=== PATIENT | male | born 1975 | race Caucasian/White ===

== ENCOUNTER 2017-02-22 10:46 | Inpatient (IN) ==
--- NOTE | 2017-02-22 11:43 | Emergency Department Note ---
START Narrative - START START: I examined this patient and my medical decision-making was reviewed with the SPECIALTY SALES REPRESENTATIVE/PA/Advanced Practice Nurse/Resident Physician. I agree with the documented findings, disposition and treatment plan as described except to the extent set forth below. ED attending note: Patient seen with emergency medicine resident Dr YUAN. We independently evaluated the patient. We independently had [id number] contact with the patient. Please see a copy of his note for details of the history and physical, evaluation, management and disposition of this emergency Department patient. Briefly: 4 41-year-old male presents with his family to the emergency department for suicidal ideations. History of heroin abuse in the past has relapsed. Has been seen by mental health at [facility] and admitted overnight in past. Has no discreet plan or access to lethal weapons at this time. He is awake alert appropriate. Neurologically nonfocal no sources of any focal infection. Patient is undergoing screening labs for medical clearance and then will be evaluated by one A. Disposition pending.
[2017-02-22 12:02] LABS: Basophils # 0.1 K/mcL (0.0-0.2); Basophils % 0.4 %; Hemoglobin 15.9 g/dL (12.9-16.9); Immature Granulocytes % 0.2 % (0-4); Lymphocytes # 3.4 K/mcL (0.6-4.6); Lymphocytes % 27.2 %; Mean Corpuscular HGB Conc 35.3 g/dL (31.6-35.5); Mean Corpuscular Hemoglobin 29.8 pg (28.0-33.3); Mean Corpuscular Volume 84.4 fL (83.0-100.0); Mean Platelet Volume 11.1 fL (9.4-12.4); Monocytes # 1.1 K/mcL (0.0-1.3); Monocytes % 8.6 %; Neutrophils # 8.1 K/mcL (1.6-8.9); Platelet Count 207 K/mcL (140-400); Red Blood Count 5.33 M/mcL (4.19-5.50); Red Cell Distribution Width 13.2 % (11.5-14.5); Segmented Neutrophils % 63.6 %
[2017-02-22 12:10] LABS: Bilirubin,Urine Small (Negative); Blood,Urine Negative (Negative); Clarity,Urine Clear (Clear); Color,Urine Dark Yellow (Yellow); Glucose,Urine (UA) Normal (Normal); Ketones,Urine Trace mg/dL (Negative); Leukocyte Esterase,Urine Negative (Negative); Nitrite,Urine Negative (Negative); Protein,Urine 30 mg/dL (Neg-Trace); Specific Gravity,Urine > 1.030 (1.010-1.025); Urobilinogen,Urine Normal (Normal)
[2017-02-22 12:13] LABS: Amphetamine Screen,Urine Negative ng/mL (Cutoff=1000); Bacteria,Urine None Seen per hpf (None-Few); Barbiturate Screen,Urine Negative ng/mL (Cutoff=200); Benzodiazepines Screen,Urine Negative ng/mL (Cutoff=200); Cannabinoid Screen,Urine Negative ng/mL (Cutoff = 50); Cocaine Screen,Urine Positive ng/mL (Cutoff= 300); Hyaline Casts,Urine None Seen per lpf (None-Few); Opiate Screen,Urine Negative ng/mL (Cutoff=300); Phencyclidine Screen,Urine Negative ng/mL (Cutoff=25); Squamous Epithelial Cell,Urine Many per lpf (None-Few)
[2017-02-22 12:15] LABS: BUN/Creatinine Ratio 19 (6-26); Blood Urea Nitrogen 22 mg/dL (8-26); Calcium 10.2 mg/dL (8.6-10.8); Carbon Dioxide 26 mEq/L (19-29); Chloride 103 mEq/L (98-109); Glucose 101 mg/dL (70-99); Osmolality,Calculated 291 (280-300); Potassium 3.6 mEq/L (3.5-4.5); Sodium 139 mEq/L (136-145); eGFR For African Americans > 60 (> 60); eGFR For Non-African Americans > 60 (> 60)
[2017-02-22 12:16] LABS: Acetaminophen < 1.0 mcg/mL (10-30); Ethanol < 10 mg/dL (0-10); Salicylate < 5.0 mg/dL (15-30)
--- NOTE | 2017-02-22 12:38 | Emergency Department Note ---
Disposition Clinical Impression: Suicidal ideation Depression Qualifiers: Depression Type: unspecified Qualified Code(s): F32.9 - Major depressive disorder, single episode, unspecified Disposition: Admitted As Inpatient Condition: Fair Time of Disposition: 18:12 Psych HPI - General Chief Complaint: ED Psychiatric Symptoms Stated Complaint: SI Time Seen by Provider: 02/22/17 11:23 Source: patient Mode of arrival: ambulatory Limitations: no limitations Nursing Notes Reviewed: Yes Vital Signs Reviewed: Yes - History of Present Illness HPI Narrative: Patient is a 41-year-old male who presents to [facility] ED with a chief complaint of suicidal ideation. States he has had a prior history of this and had been started on an antidepressant medication Paxil. States he has a history of heroin abuse and had gone through drug rehabilitation. He had been drug free for 9 months and then had relapsed. He went on a cocaine binge over the weekend. States he now feels like he wants to kill himself and has thought of multiple ways including overdosing on medications. His took away his trazodone to try and keep him safe. Patient states there is a lot of stress in his life including multiple court dates and he does not want to deal with at all. Denies any chest pain, difficulty breathing, abdominal pain. Denies nausea, vomiting, fever or chills. Only complaint is left knee pain which has been bothering him for a long time. Pt complaint: suicidal ideation Onset (ago): day(s) Duration: getting worse History of similar episodes: Yes Improves with: none Worsens with: none Context: recent drug abuse Alleged intoxication: No Associated Psychiatric Symptoms: depression, suicidal ideation Associated symptoms: Reports: denies other symptoms Traumatic symptoms: denies traumatic injury Treatments prior to arrival: none Self harm or harm to others: admits thoughts of self harm, has plan - Related Data Home Medications Medication Instructions Recorded Confirmed Buprenorphine HCl/Naloxone HCl 1 each SL BID 02/22/17 02/22/17 [Suboxone 8 mg-2 mg Sl Film] Ibuprofen [Ibuprofen] 800 mg PO TID PRN 02/22/17 02/22/17 Nicotine Patch [Nicoderm] 7 mg TD DAILY 02/22/17 02/22/17 Paroxetine HCl [Paroxetine Cr] 25 mg PO DAILY 02/22/17 02/22/17 Previous Rx's Medication Instructions Recorded Gabapentin [Neurontin] 600 mg PO TID #90 tablet 06/16/16 Trazodone HCl 100 mg PO HS #30 tablet 06/16/16 Allergies Allergy/AdvReac Type Severity Reaction Status Date / Time No Known Allergies Allergy Verified 03/23/16 05:20 All systems ED: reviewed and negative except as stated. Past Medical History - Past Medical History Attestation: Yes The following information was validated with the patient. Source: patient Medical history: Reports: COPD, hypertension Surgical history: Reports: other Psychiatric history: Reports: prior suicide attempt, previous psychiatric hospitalization - Social History Smoking Status: Current every day smoker Smokeless Tobacco Status: No Alcohol use: Reports: none Drug use: Reports: cocaine, opiates, IV Drug Use, other Physical Exam - General Limitations: no limitations General appearance: alert - Head Head exam: atraumatic, normocephalic, normal inspection - Eye Eye exam: Present: normal appearance, PERRL, EOMI - ENT ENT exam: normal exam, normal oropharynx, mucous membranes moist - Neck Neck exam: Present: normal inspection, full ROM, trachea midline - Chest Chest inspection: Present: normal inspection, symmetric chest wall rise - Respiratory Respiratory exam: Present: normal lung sounds bilaterally - Cardiovascular Cardiovascular exam: Present: regular rate, normal rhythm, normal heart sounds - Abdominal Exam Abdominal exam: Present: soft, Non-Tender - Extremities Exam Extremities exam: Present: tenderness (L knee) - Back Exam Back exam: Present: normal inspection, full ROM. Absent: tenderness - Neurological Exam Neurological exam: Present: alert - Psychiatric Psychiatric exam: Present: normal affect, normal mood - Skin Skin exam: Present: warm, dry, intact, normal color Course Course Narrative: Patient seen and examined. Suicidal ideation. Medical clearance labs ordered. Patient does have left knee pain that has been bothering him for a long time. No acute injury to this. No erythema overlying the region or anything that makes me suspect this is a septic joint. - Reevaluation(s) Reevaluation #1: Patient's lab work shows mild leukocytosis and UDS is positive for cocaine as he had stated previously. No other acute abnormalities. At this time, patient is medically cleared for psychiatric evaluation. 1A was called at 12:40 PM Time: 12:44 Reevaluation #2: Patient was evaluated by psychiatry and is accepted for admission. Time: 18:12 Vital Signs Temperature 98.2 F 02/22/17 11:08 Pulse Rate 84 02/22/17 11:08 Respiratory Rate 16 02/22/17 11:08 Blood Pressure 121/83 02/22/17 11:08 O2 Sat by Pulse Oximetry 96 02/22/17 11:08 Temperature 98.2 F 02/22/17 11:08 Pulse Rate 84 02/22/17 11:08 Respiratory Rate 0 02/22/17 18:12 Blood Pressure 0/0 02/22/17 18:12 O2 Sat by Pulse Oximetry 96 02/22/17 11:08 Oxygen Delivery Oxygen Delivery Room Air Psych - Medical Records Medical records reviewed: Yes I reviewed the patient's medical records. - Lab Data Lab results reviewed: Yes I reviewed the patient's lab results. Result diagrams: 02/22/17 11:49 02/22/17 11:49 Lab Results 02/22/17 02/22/17 02/22/17 Range/Units 11:49 11:49 11:56 WBC 12.7 H (4.3-11.1) K/mcL RBC 5.33 (4.19-5.50) M/mcL Hgb 15.9 (12.9-16.9) g/dL Hct 45.0 (37.5-50.1) % MCV 84.4 (83.0-100.0) fL MCH 29.8 (28.0-33.3) pg MCHC 35.3 (31.6-35.5) g/dL RDW 13.2 (11.5-14.5) % Plt Count 207 (140-400) K/mcL MPV 11.1 (9.4-12.4) fL Immature Gran % 0.2 (0-4) % Seg Neutrophils % 63.6 % Lymphocytes % 27.2 % Monocytes % 8.6 % Eosinophils % 0.0 % Basophils % 0.4 % Neutrophils # 8.1 (1.6-8.9) K/mcL Lymphocytes # 3.4 (0.6-4.6) K/mcL Monocytes # 1.1 (0.0-1.3) K/mcL Eosinophils # 0.0 (0.0-0.6) K/mcL Basophils # 0.1 (0.0-0.2) K/mcL Sodium 139 (136-145) mEq/L Potassium 3.6 (3.5-4.5) mEq/L Chloride 103 (98-109) mEq/L Carbon Dioxide 26 (19-29) mEq/L BUN 22 (8-26) mg/dL Creatinine 1.16 (0.72-1.25) mg/dL Est GFR ( Amer) > 60 (> 60) Est GFR (Non-Af Amer) > 60 (> 60) BUN/Creatinine Ratio 19 (6-26) Glucose 101 H (70-99) mg/dL Calculated Osmolality 291 (280-300) Calcium 10.2 (8.6-10.8) mg/dL Urine Color Dark Yellow (Yellow) Urine Clarity Clear (Clear) Urine pH 6.0 (5.0-8.0) pH Units Ur Specific Robins > 1.030 H (1.010-1.025) Urine Protein 30 H (Neg-Trace) mg/dL Urine Glucose (UA) Normal (Normal) mg/dL Urine Ketones Trace H (Negative) mg/dL Urine Blood Negative (Negative) Urine Nitrite Negative (Negative) Urine Bilirubin Small H (Negative) Urine Urobilinogen Normal (Normal) mg/dL Ur Leukocyte Esterase Negative (Negative) Urine Microscopic RBC 5-15 H (0-3) per hpf Urine Microscopic WBC 3-5 H (0-3) per hpf Ur Squamous Epith Cells Many H (None-Few) per lpf Urine Bacteria None Seen (None-Few) per hpf Hyaline Casts None Seen (None-Few) per lpf Salicylates < 5.0 L (15-30) mg/dL Urine Opiates Screen (Qefasq=323) ng/mL Acetaminophen < 1.0 L (10-30) mcg/mL Ur Barbiturates Screen (Tjtsuv=407) ng/mL Ur Phencyclidine Scrn (Cutoff=25) ng/mL Ur Amphetamines Screen (Iosyjo=8695) ng/mL U Benzodiazepines Scrn (Tlcrny=249) ng/mL Urine Cocaine Screen (Cutoff= 300) ng/mL U Marijuana (THC) Screen (Cutoff = 50) ng/mL Ethyl Alcohol < 10 (0-10) mg/dL 02/22/17 Range/Units 11:56 WBC (4.3-11.1) K/mcL RBC (4.19-5.50) M/mcL Hgb (12.9-16.9) g/dL Hct (37.5-50.1) % MCV (83.0-100.0) fL MCH (28.0-33.3) pg MCHC (31.6-35.5) g/dL RDW (11.5-14.5) % Plt Count (140-400) K/mcL MPV (9.4-12.4) fL Immature Gran % (0-4) % Seg Neutrophils % % Lymphocytes % % Monocytes % % Eosinophils % % Basophils % % Neutrophils # (1.6-8.9) K/mcL Lymphocytes # (0.6-4.6) K/mcL Monocytes # (0.0-1.3) K/mcL Eosinophils # (0.0-0.6) K/mcL Basophils # (0.0-0.2) K/mcL Sodium (136-145) mEq/L Potassium (3.5-4.5) mEq/L Chloride (98-109) mEq/L Carbon Dioxide (19-29) mEq/L BUN (8-26) mg/dL Creatinine (0.72-1.25) mg/dL Est GFR ( Amer) (> 60) Est GFR (Non-Af Amer) (> 60) BUN/Creatinine Ratio (6-26) Glucose (70-99) mg/dL Calculated Osmolality (280-300) Calcium (8.6-10.8) mg/dL Urine Color (Yellow) Urine Clarity (Clear) Urine pH (5.0-8.0) pH Units Ur Specific Robins (1.010-1.025) Urine Protein (Neg-Trace) mg/dL Urine Glucose (UA) (Normal) mg/dL Urine Ketones (Negative) mg/dL Urine Blood (Negative) Urine Nitrite (Negative) Urine Bilirubin (Negative) Urine Urobilinogen (Normal) mg/dL Ur Leukocyte Esterase (Negative) Urine Microscopic RBC (0-3) per hpf Urine Microscopic WBC (0-3) per hpf Ur Squamous Epith Cells (None-Few) per lpf Urine Bacteria (None-Few) per hpf Hyaline Casts (None-Few) per lpf Salicylates (15-30) mg/dL Urine Opiates Screen Negative (Jwpdra=091) ng/mL Acetaminophen (10-30) mcg/mL Ur Barbiturates Screen Negative (Usfggr=716) ng/mL Ur Phencyclidine Scrn Negative (Cutoff=25) ng/mL Ur Amphetamines Screen Negative (Goecvr=2184) ng/mL U Benzodiazepines Scrn Negative (Oudmqi=679) ng/mL Urine Cocaine Screen Positive H (Cutoff= 300) ng/mL U Marijuana (THC) Screen Negative (Cutoff = 50) ng/mL Ethyl Alcohol (0-10) mg/dL - Radiology Data Radiology results reviewed: Yes I reviewed the patient's radiology results. Psychiatric Medical Clearance - Medical Clearance Checklist Does the patient have a NEW psychiatric condition?: No Any abnormalities indicating possible medical illness?: No Any history of medical issues?: No Medical History: No Social History Section defined Any abnormal vital signs prior to transfer?: No Current Vitals: Last Vital Signs Temp 98.2 F 02/22/17 11:08 Pulse 84 02/22/17 11:08 Resp 0 02/22/17 18:12 BP 0/0 02/22/17 18:12 Pulse Ox 96 02/22/17 11:08 Is the patient intoxicated or cognitively impaired?: No Psychiatric Lab Panel: Drug Levels and Toxicity 02/22/17 02/22/17 11:49 11:56 Urine Opiates Screen Negative Acetaminophen < 1.0 L Ur Barbiturates Screen Negative Ur Phencyclidine Scrn Negative Ur Amphetamines Screen Negative U Benzodiazepines Scrn Negative Urine Cocaine Screen Positive H U Marijuana (THC) Screen Negative Ethyl Alcohol < 10 Any abnormalities on the physical exam?: No Any abnormal labs?: Yes (mild leukocytosis, + cocaine) Abnormal Labs: Abnormal lab results WBC 12.7 K/mcL (4.3-11.1) H 02/22/17 11:49 Glucose 101 mg/dL (70-99) H 02/22/17 11:49 Ur Specific Robins > 1.030 (1.010-1.025) H 02/22/17 11:56 Urine Protein 30 mg/dL (Neg-Trace) H 02/22/17 11:56 Urine Ketones Trace mg/dL (Negative) H 02/22/17 11:56 Urine Bilirubin Small (Negative) H 02/22/17 11:56 Urine Microscopic RBC 5-15 per hpf (0-3) H 02/22/17 11:56 Urine Microscopic WBC 3-5 per hpf (0-3) H 02/22/17 11:56 Ur Squamous Epith Cells Many per lpf (None-Few) H 02/22/17 11:56 Salicylates < 5.0 mg/dL (15-30) L 02/22/17 11:49 Acetaminophen < 1.0 mcg/mL (10-30) L 02/22/17 11:49 Urine Cocaine Screen Positive ng/mL (Cutoff= 300) H 02/22/17 11:56 Does the patient require durable medical equiptment?: No Is the patient ambulatory?: Yes Is the patient a fall risk?: No Has the patient been medically cleared?: Yes Any acute medical condition require Tx prior to transfer?: No Statement of Medical Clearance: I have evaluated the patient, reviewed diagnostic information, and certify that the patient's medical condition is sufficiently stable that transfer to the psychiatric unit does not pose a significant risk of deterioration.
[2017-02-22] MEDS ORDERED: *HR* LORazepam 1 MG TABLET PO PRN (19:06)
[2017-02-22] MEDS ORDERED: Ibuprofen 400 MG TABLET PO PRN (19:06)
[2017-02-22] MEDS ORDERED: *HR* LORazepam 2 MG/ML VIAL IM PRN (19:06)
[2017-02-22] MEDS ORDERED: Haloperidol Lactate 5 MG/ML VIAL IM PRN (19:06)
[2017-02-22] MEDS ORDERED: Mag Hydrox/Al Hydrox/Simeth 30 ML UDC PO PRN (19:06)
[2017-02-22] MEDS ORDERED: hydrOXYzine pamoate 25 MG CAPSULE PO PRN (19:06)
[2017-02-22] MEDS ORDERED: traZODone 50 MG TABLET PO PRN (21:00)
[2017-02-22] MEDS ORDERED: MOM Conc 10 ML UD.LIQ PO PRN (21:00)
[2017-02-22] MEDS ORDERED: traZODone 50 MG TABLET PO SCH (21:45)
[2017-02-22] MEDS: Gabapentin 300 MG CAPSULE PO SCH (22:59)
[2017-02-22] MEDS: Ibuprofen 400 MG TABLET PO PRN (23:00)
[2017-02-23] MEDS: Gabapentin 300 MG CAPSULE PO SCH ×3 (08:42→21:59)
[2017-02-23] MEDS: Nicotine 7 MG PATCH.TD24 TD SCH (08:44)
[2017-02-23] MEDS ORDERED: PAXIL 25 MG PO SCH ×2 (09:00→21:00)
--- NOTE | 2017-02-23 12:52 | Psychiatry History & Physical ---
Date of Encounter: 02/23/17 Time of Encounter: 12:25 History of Present Illness Patient Stated Chief Complaint: "I just don't want to live." Medicare Admission Attestation: For traditional Medicare patients the provided hospital inpatient services are reasonable and necessary and in the case of services not specified as inpatient -only under 42 CFR 419.22 (n), that they are appropriately provided as inpatient services in accordance 42 CFR 412.3. For Critical Access Hospital the patient may reasonably be expected to be discharged or transferred to a hospital within 96 hours after admission to the Critical Access Hospital. Admitted From: Emergency Dept History of Present Illness: Mr. Joel is a 41 year old male with a long-standing history of depression , anxiety, polysubstance abuse who presented to the hospital with increasing depression and a plan to overdose on his medications. Patient was admitted to a for psychiatric stabilization. Patient reports that he struggles with mental health issues because he sometimes does not like taking his medications. He does think that the Paxil has been helpful in the past but states over the past few months he has noted his mood is getting worse. He also reports that he recently used cocaine and other drugs in a relapse after being sober for 9 months. "I get depressed and then I would use and that I get more depressed." He reports he has had lots of thoughts about hurting himself and had multiple plans including a plan to overdose on his pills. "That was is the easiest thing I can think of." He reports mood swings, irritability, anger problems. He also reports decreased sleep at times. He takes the trazodone some days but it makes him very sleepy and groggy during work. Patient works at a [employer]. Today he denies any auditory or visual hallucinations. He has not had a history of psychosis in the past. He denies grandiosity, decreased need for sleep or impulsivity. He does admit to anger outbursts and severe depression. Past Med Surg Social Fam HX - Past Medical History Medical history: COPD, hypertension - Past Psychiatric History Psychiatric history: Reports: anxiety, depression, prior suicide attempt, previous psychiatric hospitalization, other (subtance abuse) Past psychiatric history details: Patient has 2 previous psychiatric admissions. He has been to rehabilitation multiple times. Family psychiatric history: Yes Family Psychiatric History Details: Mom and dad have history of depression. Family History of Suicide: None - Past Surgical History Surgical History: other - Social History Smoking Status: Current every day smoker Smokeless Tobacco Status: No Alcohol use: none Drug use: cocaine, opiates, IV Drug Use, other Occupational status: employed Current living situation: Home - Family History Mother Hx Family Neuromuscular Disorders: Yes (back pain) Maternal Grandfather Hx Family Cancer: Yes Paternal Grandfather Hx Family Cancer: Yes Medications & Allergies Gabapentin [Neurontin] 600 mg PO TID #90 tablet 06/16/16 [Rx] Trazodone HCl 100 mg PO HS #30 tablet 06/16/16 [Rx] Buprenorphine HCl/Naloxone HCl [Suboxone 8 mg-2 mg Sl Film] 1 each SL BID [History] Ibuprofen [Ibuprofen] 800 mg PO TID PRN 02/22/17 [History] Nicotine Patch [Nicoderm] 7 mg TD DAILY 02/22/17 [History] Paroxetine HCl [Paroxetine Cr] 25 mg PO DAILY 02/22/17 [History] Allergies No Known Allergies Allergy (Verified 03/23/16 05:20) Review of Systems Constitutional: Denies: fever, chills, weakness, weight change Eyes: Denies: eye pain, vision change Ears, Nose, Throat: Denies: ear pain, throat pain, dental pain, hearing loss, congestion Cardiovascular: Denies: chest pain, palpitations, dyspnea on exertion Respiratory: Denies: cough, dyspnea, wheezes Gastrointestinal: Denies: abdominal pain, nausea, vomiting, diarrhea, constipation Genitourinary male: Denies: urgency, dysuria, frequency, genital lesions Genitourinary female: Denies: urgency, dysuria, frequency, abnormal menses, dyspareunia Musculoskeletal: Reports: back pain, joint pain Integumentary: Denies: rash, lesions, pruritus Neurological: Reports: headache, paresthesias Psychiatric: Reports: depression, anxiety, abnormal sleep pattern, suicidal ideation, difficulty concentrating, hopelessness, irritability, mood swings. Denies: auditory hallucinations, visual hallucinations Endocrine: Denies: fatigue, heat or cold intolerance Hematologic/Lymphatic: Denies: easy bruising, lymphadenopathy Allergic/Immunologic: Denies: urticaria, itchy eyes Mental Status Exam Patient orientation: Yes Person, Yes Time, Yes Place Level of alertness: Alert Patient appearance: Appropriate Behavior: calm, cooperative Psychomotor activity: Normal Eye contact: Minimal Contact Mood description: Depressed Affect description: congruent with mood Speech pattern: Normal rate, Normal rhythm, Normal tone Speech volume: Normal Thought process: Intact, Logical Thought content: Yes Suicidal ideation Perceptual disturbances: No Auditory hallucinations, No Visual hallucinations Attention span: Capable of Focused Attention Memory description: Grossly Intact, Immediate Intact Patient reliability: Reliable Historian Intelligence estimate: Average Judgment: Limited Insight: Minimal Exam - HEENT Head exam IM: Present: atraumatic Eye exam IM: Present: conjuntiva pink - Neurological Neurological exam IM: Present: CN II-XII intact - Extremities Extremities exam IM: Present: full ROM - Skin Skin exam IM: Present: dry, warm Results - Vital Signs Vital signs: Temp Pulse Resp BP Pulse Ox 97.3 F L 73 16 105/80 96 02/23/17 09:00 02/23/17 09:00 02/23/17 09:00 02/23/17 09:00 02/22/17 11:08 - Labs Labs: Laboratory Last Values WBC 12.7 K/mcL (4.3-11.1) H 02/22/17 11:49 RBC 5.33 M/mcL (4.19-5.50) 02/22/17 11:49 Hgb 15.9 g/dL (12.9-16.9) 02/22/17 11:49 Hct 45.0 % (37.5-50.1) 02/22/17 11:49 MCV 84.4 fL (83.0-100.0) 02/22/17 11:49 MCH 29.8 pg (28.0-33.3) 02/22/17 11:49 MCHC 35.3 g/dL (31.6-35.5) 02/22/17 11:49 RDW 13.2 % (11.5-14.5) 02/22/17 11:49 Plt Count 207 K/mcL (140-400) 02/22/17 11:49 MPV 11.1 fL (9.4-12.4) 02/22/17 11:49 Immature Gran % 0.2 % (0-4) 02/22/17 11:49 Seg Neutrophils % 63.6 % 02/22/17 11:49 Lymphocytes % 27.2 % 02/22/17 11:49 Monocytes % 8.6 % 02/22/17 11:49 Eosinophils % 0.0 % 02/22/17 11:49 Basophils % 0.4 % 02/22/17 11:49 Neutrophils # 8.1 K/mcL (1.6-8.9) 02/22/17 11:49 Lymphocytes # 3.4 K/mcL (0.6-4.6) 02/22/17 11:49 Monocytes # 1.1 K/mcL (0.0-1.3) 02/22/17 11:49 Eosinophils # 0.0 K/mcL (0.0-0.6) 02/22/17 11:49 Basophils # 0.1 K/mcL (0.0-0.2) 02/22/17 11:49 Sodium 139 mEq/L (136-145) 02/22/17 11:49 Potassium 3.6 mEq/L (3.5-4.5) 02/22/17 11:49 Chloride 103 mEq/L (98-109) 02/22/17 11:49 Carbon Dioxide 26 mEq/L (19-29) 02/22/17 11:49 BUN 22 mg/dL (8-26) 02/22/17 11:49 Creatinine 1.16 mg/dL (0.72-1.25) 02/22/17 11:49 Est GFR ( Amer) > 60 (> 60) 02/22/17 11:49 Est GFR (Non-Af Amer) > 60 (> 60) 02/22/17 11:49 BUN/Creatinine Ratio 19 (6-26) 02/22/17 11:49 Glucose 101 mg/dL (70-99) H 02/22/17 11:49 Calculated Osmolality 291 (280-300) 02/22/17 11:49 Calcium 10.2 mg/dL (8.6-10.8) 02/22/17 11:49 Urine Color Dark Yellow (Yellow) 02/22/17 11:56 Urine Clarity Clear (Clear) 02/22/17 11:56 Urine pH 6.0 pH Units (5.0-8.0) 02/22/17 11:56 Ur Specific Conrad > 1.030 (1.010-1.025) H 02/22/17 11:56 Urine Protein 30 mg/dL (Neg-Trace) H 02/22/17 11:56 Urine Glucose (UA) Normal mg/dL (Normal) 02/22/17 11:56 Urine Ketones Trace mg/dL (Negative) H 02/22/17 11:56 Urine Blood Negative (Negative) 02/22/17 11:56 Urine Nitrite Negative (Negative) 02/22/17 11:56 Urine Bilirubin Small (Negative) H 02/22/17 11:56 Urine Urobilinogen Normal mg/dL (Normal) 02/22/17 11:56 Ur Leukocyte Esterase Negative (Negative) 02/22/17 11:56 Urine Microscopic RBC 5-15 per hpf (0-3) H 02/22/17 11:56 Urine Microscopic WBC 3-5 per hpf (0-3) H 02/22/17 11:56 Ur Squamous Epith Cells Many per lpf (None-Few) H 02/22/17 11:56 Urine Bacteria None Seen per hpf (None-Few) 02/22/17 11:56 Hyaline Casts None Seen per lpf (None-Few) 02/22/17 11:56 Salicylates < 5.0 mg/dL (15-30) L 02/22/17 11:49 Urine Opiates Screen Negative ng/mL (Aanhmt=226) 02/22/17 11:56 Acetaminophen < 1.0 mcg/mL (10-30) L 02/22/17 11:49 Ur Barbiturates Screen Negative ng/mL (Ftwdfe=381) 02/22/17 11:56 Ur Phencyclidine Scrn Negative ng/mL (Cutoff=25) 02/22/17 11:56 Ur Amphetamines Screen Negative ng/mL (Pqiocj=8622) 02/22/17 11:56 U Benzodiazepines Scrn Negative ng/mL (Vtpefi=348) 02/22/17 11:56 Urine Cocaine Screen Positive ng/mL (Cutoff= 300) H 02/22/17 11:56 U Marijuana (THC) Screen Negative ng/mL (Cutoff = 50) 02/22/17 11:56 Ethyl Alcohol < 10 mg/dL (0-10) 02/22/17 11:49 Assessment and Plan (1) Major depressive disorder, recurrent Current visit: No Status: Acute Plan: Admit inpatient for safety and stabilization, Close observation, Suicide Precautions per unit protocol, Encourage participation in unit milieu, Group Therapy, Monitor sleep, Monitor appetite Additional Plan: TAper Paxil. Transition to wellbutrin for depression. Encourage group attendance. Monitor sleep and appetite. Start Remeron for sleep and discontinue trazodone. Risks, benefits, side effects, alternatives discussed w/pt: Yes Patient agreeable to treatment: Yes Qualifiers: Active/Remission status: currently active Major depression episode severity : severe Psychotic features: without psychotic features Qualified Code(s): F33.2 - Major depressive disorder, recurrent severe without psychotic features (2) Anxiety Current visit: No Status: Acute Plan: Admit inpatient for safety and stabilization, Close observation, Suicide Precautions per unit protocol, Encourage participation in unit milieu, Group Therapy, Monitor sleep, Monitor appetite Additional Plan: Encouraged patient to use non-habit forming meds for anxiety. Encouraged continued positive coping strategies. Risks, benefits, side effects, alternatives discussed w/pt: Yes Patient agreeable to treatment: Yes (3) Polysubstance abuse Current visit: No Status: Acute Plan: Admit inpatient for safety and stabilization, Close observation Additional Plan: Avoid habit-forming substances. Patient is considering long-term outpatient substance abuse treatment when he leaves here. Patient reports she has been off Suboxone for several days and is concerned about withdrawal. We will monitor vitals and other symptoms of opiate withdrawal. Symptomatic treatment for withdrawal symptoms. Risks, benefits, side effects, alternatives discussed w/pt: Yes Patient agreeable to treatment: Yes
[2017-02-23] MEDS: Mirtazapine 15 MG TABLET PO SCH (21:59)
[2017-02-24] MEDS: Nicotine 7 MG PATCH.TD24 TD SCH (08:43)
[2017-02-24] MEDS: Gabapentin 300 MG CAPSULE PO SCH ×3 (08:44→20:43)
[2017-02-24] MEDS: BuPROPion XL (24 HR) 150 MG TABLET PO SCH (08:44)
--- NOTE | 2017-02-24 10:20 | Psychiatry Progress Note ---
Date of Encounter: 02/24/17 Time of Encounter: 08:35 Subjective Interval history: Johnny is seen today for follow-up. Discussed case in treatment team as well. Patient reports continued depression but some mild improvement in suicidal thoughts. He does admit to "feeling hot and cold." He is unsure if this was related to Suboxone withdrawal or the fact that he did not get a Paxil dose yesterday. He did sleep better but is unsure if the medication is helping for sleep or not. I just do not feel like myself." Patient still has suicidal ideation but he states now it is because "I do not like feeling like this." Review of Systems Constitutional: Denies: fever, chills, weakness, weight change Eyes: Denies: eye pain, vision change Ears, Nose, Throat: Denies: ear pain, throat pain, dental pain, hearing loss, congestion Cardiovascular: Denies: chest pain, palpitations, dyspnea on exertion Respiratory: Denies: cough, dyspnea, wheezes Gastrointestinal: Denies: abdominal pain, nausea, vomiting, diarrhea, constipation Musculoskeletal: Denies: joint swelling, joint pain Neurological: Denies: headache, weakness, numbness, memory loss Psychiatric: Reports: depression, anxiety, abnormal sleep pattern, suicidal ideation, difficulty concentrating, irritability, mood swings. Denies: auditory hallucinations, visual hallucinations Objective: Exam Patient orientation: Yes Person, Yes Time, Yes Place Level of alertness: Alert Patient appearance: Appropriate Behavior: cooperative Psychomotor activity: Normal Eye contact: Fleeting Contact Mood description: Depressed Affect description: congruent with mood Speech pattern: Normal rate, Normal rhythm, Normal tone Speech volume: Normal Thought process: Intact Thought content: Yes Suicidal ideation, No Homicidal ideation Perceptual disturbances: No Auditory hallucinations, No Visual hallucinations Judgment: Limited Insight: Minimal Results - Vital Signs Vital Signs: Temp Pulse Resp BP Pulse Ox 97.6 F 67 16 136/92 96 02/24/17 08:46 02/24/17 08:46 02/24/17 08:46 02/24/17 08:46 02/22/17 11:08 Assessment and Plan (1) Major depressive disorder, recurrent Current visit: No Status: Acute Additional Plan: Continue Paxil taper. Continue Wellbutrin. At this point it is unclear if patient is having bad side effects or withdrawal from various drug use. We will monitor closely. Risks, benefits, side effects, alternatives discussed w/pt: Yes Patient agreeable to treatment: Yes Qualifiers: Active/Remission status: currently active Major depression episode severity : severe Psychotic features: without psychotic features Qualified Code(s): F33.2 - Major depressive disorder, recurrent severe without psychotic features (2) Anxiety Current visit: No Status: Acute Plan: Continue hospitalization, Close observation, Suicide Precautions per unit protocol, Encourage participation in unit milieu, Group Therapy, Monitor sleep, Monitor appetite Additional Plan: Encouraged continued positive coping strategies. Risks, benefits, side effects, alternatives discussed w/pt: Yes Patient agreeable to treatment: Yes (3) Polysubstance abuse Current visit: No Status: Acute Plan: Continue hospitalization, Close observation, Suicide Precautions per unit protocol, Encourage participation in unit milieu, Group Therapy, Monitor sleep, Monitor appetite Additional Plan: Patient will continue to call rehabs. Risks, benefits, side effects, alternatives discussed w/pt: Yes Patient agreeable to treatment: Yes Consult Discharge Plan - Plan Referrals: [facility] [Other] - 03/01/17 6:00 pm (You will see Msisy for a home visit for outpatient substance abuse counseling on 03/01/2017 at 6: 0pm) [facility] [Outside] - 03/01/17 10:00 am (The above appointment is with Mari Dhillon for dual diagnosis counseling. You will also see Zahra Donahue CNP, for outpatient psychiatric assessment and medication management services on 03/23/2017 at 8:00 AM.) Idalia Stephenson [Advanced Practice Nurse] - 03/04/17 10:00 am (The above appointment is with Idalia Stephenson CNP, at [facility]. This appointment is to discuss your needs for Vivitrol. Please arrive 15 minutes early to complete paperwork. Please bring your insurance card, photo ID and list of current medications to your first appointment. )
[2017-02-24] MEDS: Mirtazapine 15 MG TABLET PO SCH (20:44)
[2017-02-24] MEDS: Ibuprofen 400 MG TABLET PO PRN (20:44)
[2017-02-25] MEDS: Nicotine 7 MG PATCH.TD24 TD SCH (08:37)
[2017-02-25] MEDS: Gabapentin 300 MG CAPSULE PO SCH ×3 (08:37→21:38)
[2017-02-25] MEDS: BuPROPion XL (24 HR) 150 MG TABLET PO SCH (08:38)
[2017-02-25] MEDS ORDERED: BuPROPion XL (24 HR) 150 MG TABLET PO SCH (10:23)
--- NOTE | 2017-02-25 13:54 | Psychiatry Progress Note ---
Date of Encounter: 02/25/17 Time of Encounter: 10:20 Subjective Interval history: Patient seen today for follow-up. Discussed in treatment team. Patient reports some mild improvement although he feels that him not getting his Paxil is what caused him to feel fatigued today. We discussed that he is likely having some withdrawal from Suboxone as well. Patient admits to periods of irritability and myalgias that may be related to Suboxone withdrawal. He reports vague intermittent suicidal ideations at times. He is hopeful about the medication changes and feels the Remeron helps with sleep. Review of Systems Constitutional: Denies: fever, chills, weakness, weight change Eyes: Denies: eye pain, vision change Ears, Nose, Throat: Denies: ear pain, throat pain, dental pain, hearing loss, congestion Cardiovascular: Denies: chest pain, palpitations, dyspnea on exertion Respiratory: Denies: cough, dyspnea, wheezes Gastrointestinal: Denies: abdominal pain, nausea, vomiting, diarrhea, constipation Musculoskeletal: Reports: myalgia Neurological: Denies: headache, weakness, numbness, memory loss Psychiatric: Reports: depression, anxiety, abnormal sleep pattern, suicidal ideation, difficulty concentrating, irritability, mood swings. Denies: auditory hallucinations, visual hallucinations Objective: Exam Patient orientation: Yes Person, Yes Time, Yes Place Level of alertness: Alert Patient appearance: Appropriate Behavior: calm Psychomotor activity: Normal Eye contact: Maintains Eye Contact Mood description: Depressed Affect description: incongruent with mood Speech pattern: Normal rate, Normal rhythm, Normal tone Speech volume: Normal Thought process: Logical Thought content: Yes Suicidal ideation, No Homicidal ideation Perceptual disturbances: No Auditory hallucinations, No Visual hallucinations Judgment: Limited Insight: Minimal Results - Vital Signs Vital Signs: Temp Pulse Resp BP Pulse Ox 97.8 F 64 16 120/79 96 02/25/17 08:14 02/25/17 08:14 02/25/17 08:14 02/25/17 08:14 02/22/17 11:08 Assessment and Plan (1) Major depressive disorder, recurrent Current visit: No Status: Acute Plan: Continue hospitalization, Close observation, Suicide Precautions per unit protocol, Encourage participation in unit milieu, Group Therapy, Monitor sleep, Monitor appetite Additional Plan: Increase Wellbutrin. Encourage positive coping strategies. Some improvement in mood. Plan for discharge tomorrow if things continue to improve. Risks, benefits, side effects, alternatives discussed w/pt: Yes Patient agreeable to treatment: Yes Qualifiers: Active/Remission status: currently active Major depression episode severity : severe Psychotic features: without psychotic features Qualified Code(s): F33.2 - Major depressive disorder, recurrent severe without psychotic features (2) Anxiety Current visit: No Status: Acute Risks, benefits, side effects, alternatives discussed w/pt: Yes Patient agreeable to treatment: Yes (3) Polysubstance abuse Current visit: No Status: Acute Additional Plan: Patient feels mental health issues are more of an issue than substance abuse. We are discussing the importance of following up with substance abuse treatment. Risks, benefits, side effects, alternatives discussed w/pt: Yes Patient agreeable to treatment: Yes Consult Discharge Plan - Plan Referrals: [facility] [Other] - 03/01/17 6:00 pm (You will see Missy for a home visit for outpatient substance abuse counseling on 03/01/2017 at 6: 0pm) [facility] [Outside] - 03/01/17 10:00 am (The above appointment is with Mari Dhillon for dual diagnosis counseling. You will also see Zahra Donahue CNP, for outpatient psychiatric assessment and medication management services on 03/23/2017 at 8:00 AM.) Idalia Stephenson [Advanced Practice Nurse] - 03/04/17 10:00 am (The above appointment is with Idalia Stephenson CNP, at [facility]. This appointment is to discuss your needs [facility] [place] [facility]. Please arrive 15 minutes early to complete paperwork. Please bring your insurance card, photo ID and list of current medications to your first appointment. )
[2017-02-25] MEDS: Mirtazapine 15 MG TABLET PO SCH (21:38)
[2017-02-26 08:32] VITALS: BP 136/94
[2017-02-26] MEDS: Nicotine 7 MG PATCH.TD24 TD SCH (08:48)
[2017-02-26] MEDS: Gabapentin 300 MG CAPSULE PO SCH ×2 (08:49→14:18)
--- NOTE | 2017-02-26 14:09 | Discharge Summary ---
Date of Encounter: 02/26/17 Time of Encounter: 09:30 Diagnosis - Discharge Diagnosis (1) Major depressive disorder, recurrent Priority: Primary Status: Acute Qualifiers: Active/Remission status: currently active Major depression episode severity : severe Psychotic features: without psychotic features Qualified Code(s): F33.2 - Major depressive disorder, recurrent severe without psychotic features (2) Anxiety Priority: Secondary Status: Acute (3) Polysubstance abuse Priority: Secondary Status: Acute Medications - Discharge Medications Prescriptions: BuPROPion XL (24 HR) [Wellbutrin Xl] 300 mg PO DAILY #60 tab Mirtazapine [Remeron] 15 mg PO HS #30 tab Paroxetine [Paxil] 10 mg PO HS #30 tab Gabapentin [Neurontin] 600 mg PO TID #90 tablet 06/16/16 [Rx] Buprenorphine HCl/Naloxone HCl [Suboxone 8 mg-2 mg Sl Film] 1 each SL BID [History] Ibuprofen 800 mg PO TID PRN 02/22/17 [History] Nicotine Patch [Nicoderm] 7 mg TD DAILY 02/22/17 [History] BuPROPion XL (24 HR) [Wellbutrin Xl] 300 mg PO DAILY #60 tab 02/26/17 [Rx] Mirtazapine [Remeron] 15 mg PO HS #30 tab 02/26/17 [Rx] Paroxetine [Paxil] 10 mg PO HS #30 tab 02/26/17 [Rx] Allergies No Known Allergies Allergy (Verified 03/23/16 05:20) Provider Date of admission: 02/23/17 13:03 Primary care physician: PCP NONE Discharging clinician: Holly Kelly Assessment and Plan - Patient/Caregiver Discharge Instructions Activity: resume usual activities as tolerated Diet: regular diet - Follow up Plan Follow up with: [facility] [Other] - 03/01/17 6:00 pm (You will see Missy for a home visit for outpatient substance abuse counseling on 03/01/2017 at 6: 0pm) [facility] [Outside] - 03/01/17 10:00 am (The above appointment is with Mari Dhillon for dual diagnosis counseling. You will also see Zahra Donahue CNP, for outpatient psychiatric assessment and medication management services on 03/23/2017 at 8:00 AM.) Idalia Stephenson [Advanced Practice Nurse] - 03/04/17 10:00 am (The above appointment is with Idalia Stephenson CNP, at [facility]. This appointment is to discuss your needs for Johnnie. Please arrive 15 minutes early to complete paperwork. Please bring your insurance card, photo ID and list of current medications to your first appointment. ) Functional capacity at discharge: independent ambulation Overall status at discharge: Stable Disposition: Home, Self-Care Hospital Course Hospital course: Mr. Joel is a 41 year old male with a history of depression, anxiety, polysubstance abuse who presented to the hospital with increasing depression and suicidal ideations. He was admitted to [facility] for psychiatric stabilization. Patient was incorporated into the therapeutic milieu and offer group and individual as well as recreational therapy. He was also offered psychoeducational materials and supportive therapy. He was placed on suicide precautions and close observation per unit protocol. Patient had been on Paxil and trazodone but felt these meds were helping. The Paxil was decreased to 10 mg daily and she was started on Remeron for sleep. He was also given Wellbutrin for mood symptoms. Throughout the course of the hospital stay the patient's mood improved. He was resistant to attending group activities but he interact with peers and staff during meals and other activities. At the time of discharge he denied suicidal or homicidal ideation, intent, or plan. He denied auditory or visual hallucinations. He was willing to continue treatment as an outpatient for his substance abuse issues as well as his mental health issues. Insight into the importance of the substance abuse treatment was still poor at the time of discharge. Educated patient on the necessity of keeping all of his appointments and taking his meds as prescribed. He was discharged in stable condition. - Time Spent with Patient Total time spent providing and/or coordinating discharge services: Greater than 30 minutes Quality - Multiple Antipsychotics Patient discharged on 2 or more antipsychotic medications: No Procedures - Procedures Procedures: Medication Management, Crisis Stabilization, Supportive Therapy, Group Therapy, Psychoeducational Therapy Mental Status Exam - Mental Status Exam Patient orientation: Yes Person, Yes Time, Yes Place Level of alertness: Alert Patient appearance: Appropriate, Well Groomed Behavior: calm, cooperative Psychomotor activity: Normal Eye contact: Maintains Eye Contact Mood description: Euthymic/stable Affect description: congruent with mood, full range Speech pattern: Normal rate, Normal rhythm, Normal tone Speech Volume: Normal Thought process: Linear, Goal Oriented Thought Content: No Suicidal ideation, No Homicidal ideation, No Overt delusions Perceptual Disturbances: No Auditory hallucinations, No Visual hallucinations Judgment: Limited Insight: Partial
== END 2017-02-26 17:50 | disposition home or self-care (01) | DRG 751 ==
LOC: EMEROO 10:46 → 1ANU 17:08 → INTOOBSV 17:08 → 1ANU 18:14
PROVIDERS: ADMIT Student in an Organized Health Care Education/Training Program; ATTEND Student in an Organized Health Care Education/Training Program

== ENCOUNTER 2017-03-08 21:57 | Inpatient (IN) ==
--- NOTE | 2017-03-08 22:25 | Emergency Department Note ---
Disposition Clinical Impression: Suicidal ideation Disposition: Admitted As Inpatient Condition: Good Forms: ED Satisfaction Letter Time of Disposition: 03:29 Psych HPI - General Chief Complaint: ED Psychiatric Symptoms Stated Complaint: SI Time Seen by Provider: 03/08/17 22:13 Source: patient Limitations: no limitations Nursing Notes Reviewed: Yes Vital Signs Reviewed: Yes - History of Present Illness HPI Narrative: 41 year old male with mental health problems presents to the ED with SI. He states that he has been hep c free and has a good family and home but on Wednesday he recieved upsetting news that he may be going to [facility] at least [facility] and now he feels increasingly more suidical and feels like doing heorin and overdosing. He states that on Wednesday he started walking and only came home once and his appetite has decreased in addition to in ability to sleep. He states that this is simliar to what happened in may 2016 , where he excuted his plan and was adddmited for OD in this hospital. His convinced him to come to be evaluated. He states that his left second toe hurts from walkgin so much. - Related Data Home Medications Medication Instructions Recorded Confirmed Buprenorphine HCl/Naloxone HCl 1 each SL BID 02/22/17 02/22/17 [Suboxone 8 mg-2 mg Sl Film] Ibuprofen 800 mg PO TID PRN 02/22/17 02/22/17 Nicotine Patch [Nicoderm] 7 mg TD DAILY 02/22/17 02/22/17 Previous Rx's Medication Instructions Recorded Gabapentin [Neurontin] 600 mg PO TID #90 tablet 06/16/16 BuPROPion XL (24 HR) [Wellbutrin 300 mg PO DAILY #60 tab 02/26/17 Xl] Mirtazapine [Remeron] 15 mg PO HS #30 tab 02/26/17 Paroxetine [Paxil] 10 mg PO HS #30 tab 02/26/17 Allergies Allergy/AdvReac Type Severity Reaction Status Date / Time No Known Allergies Allergy Verified 03/23/16 05:20 Constitutional: Denies: fever, chills, weakness, weight change Eyes: Denies: eye pain, eye discharge, vision change ENT ED: Denies: ear pain, throat pain, dental pain, hearing loss, epistaxis, congestion, dysphagia Cardiovascular: Denies: chest pain, palpitations, dyspnea on exertion, edema, syncope Respiratory: Denies: cough, dyspnea, wheezes, hemoptysis, stridor Gastrointestinal: Denies: abdominal pain, nausea, vomiting, diarrhea, constipation, hematemesis, melena, hematochezia Genitourinary: Denies: urgency, dysuria, frequency, hematuria Musculoskeletal: Reports: other (left second toe pain). Denies: back pain, neck pain, arthralgia, myalgia Integumentary: Denies: rash, abrasion, lesions Neurological: Denies: headache, weakness, numbness, paresthesias, confusion, abnormal gait, vertigo Psychiatric: Reports: anxiety, depression, suicidal thoughts. Denies: homicidal thoughts, auditory hallucinations, visual hallucinations Endocrine: Denies: fatigue Hematological/Lymphatic: Denies: easy bleeding, easy bruising Allergic/Immunologic: Denies: facial swelling, urticaria Past Medical History - Past Medical History Medical history: Reports: COPD, hypertension Surgical history: Reports: other Psychiatric history: Reports: anxiety, depression, prior suicide attempt, previous psychiatric hospitalization, other - Social History Smoking Status: Current every day smoker Smokeless Tobacco Status: No Alcohol use: Reports: none Drug use: Reports: cocaine, opiates, IV Drug Use, other Physical Exam - General Limitations: no limitations General appearance: alert - Head Head exam: atraumatic, normocephalic, normal inspection - Eye Eye exam: Present: normal appearance, PERRL, EOMI - Expanded Eye Exam Pupils: Left: reactive - ENT ENT exam: normal exam, normal oropharynx, mucous membranes moist - Expanded ENT Exam External ear exam: Present: normal external inspection Mouth exam: Present: normal external inspection Teeth exam: Present: normal inspection Throat exam: Present: normal inspection - Neck Neck exam: Present: normal inspection, full ROM, trachea midline - Chest Chest inspection: Present: normal inspection, symmetric chest wall rise - Respiratory Respiratory exam: Present: normal lung sounds bilaterally - Cardiovascular Cardiovascular exam: Present: regular rate, normal rhythm, normal heart sounds - Abdominal Exam Abdominal exam: Present: soft, Non-Tender. Absent: tenderness, distention, guarding, rebound, rigidity - Extremities Exam Extremities exam: Present: normal inspection, full ROM. Absent: tenderness, pedal edema - Expanded Upper Extremity Exam Shoulder exam: Present: normal inspection, full ROM Arm exam: Present: normal inspection, full ROM Elbow exam: Present: normal inspection, full ROM Forearm/Wrist exam: Present: normal inspection, full ROM Hand exam: Present: normal inspection, full ROM Vascular exam: Normal: capillary refill, radial pulse - Expanded Lower Extremity Exam Hip/Pelvis exam: Present: normal inspection, full ROM Upper leg exam: Present: normal inspection, full ROM Knee exam: Present: normal inspection, full ROM Lower leg exam: Present: normal inspection, full ROM Ankle exam: Present: normal inspection, full ROM Foot/toe exam: Present: normal inspection, full ROM 1 - left second toe bruising, good pulses, warm foot 2 - bruised that is warm, good pulses Neurovascular/Tendon exam: Absent: motor deficit, sensory deficit, tendon deficit - Back Exam Back exam: Present: normal inspection, full ROM. Absent: tenderness - Neurological Exam Neurological exam: Present: alert, oriented X3 - Expanded Neurological Exam Patient oriented to: Present: person, place, time Coma Scale Eye Opening: Spontaneous Coma Scale Motor Response: Obeys Commands Coma Scale Verbal Response: Oriented Coma Scale Total: 15 - Psychiatric Psychiatric exam: Present: normal affect, normal mood - Skin Skin exam: Present: warm, dry, intact, normal color Course Course Narrative: we will do a pysch clearance and XR his feet than consult 1a - Reevaluation(s) Reevaluation #1: jon is medically cleared. 1A consult Time: 22:50 - Consultations Consultation #1: 1A accepts patient for admission. Time: 03:28 Vital Signs Temperature 98.1 F 03/08/17 21:59 Pulse Rate 80 03/08/17 21:59 Respiratory Rate 14 03/08/17 21:59 Blood Pressure 126/83 03/08/17 21:59 O2 Sat by Pulse Oximetry 96 03/08/17 21:59 Temperature 98.4 F 03/09/17 02:55 Pulse Rate 71 03/09/17 02:55 Respiratory Rate 16 03/09/17 02:55 Blood Pressure 100/68 03/09/17 02:55 O2 Sat by Pulse Oximetry 97 03/09/17 02:55 Oxygen Delivery Oxygen Delivery Room Air Psych - Lab Data Result diagrams: 03/08/17 22:16 03/08/17 22:16 Lab Results 03/08/17 03/08/17 03/08/17 Range/Units 02:56 02:56 22:16 WBC 10.0 (4.3-11.1) K/mcL RBC 5.06 (4.19-5.50) M/mcL Hgb 14.7 (12.9-16.9) g/dL Hct 42.7 (37.5-50.1) % MCV 84.4 (83.0-100.0) fL MCH 29.1 (28.0-33.3) pg MCHC 34.4 (31.6-35.5) g/dL RDW 13.2 (11.5-14.5) % Plt Count 221 (140-400) K/mcL MPV 11.4 (9.4-12.4) fL Immature Gran % 0.3 (0-4) % Seg Neutrophils % 52.4 % Lymphocytes % 35.7 % Monocytes % 11.0 % Eosinophils % 0.0 % Basophils % 0.6 % Neutrophils # 5.2 (1.6-8.9) K/mcL Lymphocytes # 3.6 (0.6-4.6) K/mcL Monocytes # 1.1 (0.0-1.3) K/mcL Eosinophils # 0.0 (0.0-0.6) K/mcL Basophils # 0.1 (0.0-0.2) K/mcL Sodium (136-145) mEq/L Potassium (3.5-4.5) mEq/L Chloride (98-109) mEq/L Carbon Dioxide (19-29) mEq/L BUN (8-26) mg/dL Creatinine (0.72-1.25) mg/dL Est GFR ( Amer) (> 60) Est GFR (Non-Af Amer) (> 60) BUN/Creatinine Ratio (6-26) Glucose (70-99) mg/dL Calculated Osmolality (280-300) Calcium (8.6-10.8) mg/dL Urine Color Dark Yellow (Yellow) Urine Clarity Clear (Clear) Urine pH 6.0 (5.0-8.0) pH Units Ur Specific [place] > 1.030 H (1.010-1.025) Urine Protein Trace (Neg-Trace) mg/dL Urine Glucose (UA) Normal (Normal) mg/dL Urine Ketones Negative (Negative) mg/dL Urine Blood Negative (Negative) Urine Nitrite Negative (Negative) Urine Bilirubin Small H (Negative) Urine Urobilinogen Normal (Normal) mg/dL Ur Leukocyte Esterase Negative (Negative) Urine Microscopic RBC 0-3 (0-3) per hpf Urine Microscopic WBC 0-3 (0-3) per hpf Ur Squamous Epith Cells Moderate H (None-Few) per lpf Urine Bacteria None Seen (None-Few) per hpf Hyaline Casts None Seen (None-Few) per lpf Salicylates (15-30) mg/dL Urine Opiates Screen Negative (Vorjcv=107) ng/mL Acetaminophen (10-30) mcg/mL Ur Barbiturates Screen Negative (Zprkck=679) ng/mL Ur Phencyclidine Scrn Negative (Cutoff=25) ng/mL Ur Amphetamines Screen Negative (Unybnl=8639) ng/mL U Benzodiazepines Scrn Negative (Lsonnx=480) ng/mL Urine Cocaine Screen Positive H (Cutoff= 300) ng/mL U Marijuana (THC) Screen Negative (Cutoff = 50) ng/mL Ethyl Alcohol (0-10) mg/dL 03/08/17 Range/Units 22:16 WBC (4.3-11.1) K/mcL RBC (4.19-5.50) M/mcL Hgb (12.9-16.9) g/dL Hct (37.5-50.1) % MCV (83.0-100.0) fL MCH (28.0-33.3) pg MCHC (31.6-35.5) g/dL RDW (11.5-14.5) % Plt Count (140-400) K/mcL MPV (9.4-12.4) fL Immature Gran % (0-4) % Seg Neutrophils % % Lymphocytes % % Monocytes % % Eosinophils % % Basophils % % Neutrophils # (1.6-8.9) K/mcL Lymphocytes # (0.6-4.6) K/mcL Monocytes # (0.0-1.3) K/mcL Eosinophils # (0.0-0.6) K/mcL Basophils # (0.0-0.2) K/mcL Sodium 140 (136-145) mEq/L Potassium 3.4 L (3.5-4.5) mEq/L Chloride 106 (98-109) mEq/L Carbon Dioxide 25 (19-29) mEq/L BUN 18 (8-26) mg/dL Creatinine 1.15 (0.72-1.25) mg/dL Est GFR ( Amer) > 60 (> 60) Est GFR (Non-Af Amer) > 60 (> 60) BUN/Creatinine Ratio 16 (6-26) Glucose 106 H (70-99) mg/dL Calculated Osmolality 292 (280-300) Calcium 9.4 (8.6-10.8) mg/dL Urine Color (Yellow) Urine Clarity (Clear) Urine pH (5.0-8.0) pH Units Ur Specific [place] (1.010-1.025) Urine Protein (Neg-Trace) mg/dL Urine Glucose (UA) (Normal) mg/dL Urine Ketones (Negative) mg/dL Urine Blood (Negative) Urine Nitrite (Negative) Urine Bilirubin (Negative) Urine Urobilinogen (Normal) mg/dL Ur Leukocyte Esterase (Negative) Urine Microscopic RBC (0-3) per hpf Urine Microscopic WBC (0-3) per hpf Ur Squamous Epith Cells (None-Few) per lpf Urine Bacteria (None-Few) per hpf Hyaline Casts (None-Few) per lpf Salicylates < 5.0 L (15-30) mg/dL Urine Opiates Screen (Csjayp=881) ng/mL Acetaminophen < 1.0 L (10-30) mcg/mL Ur Barbiturates Screen (Wjkbca=657) ng/mL Ur Phencyclidine Scrn (Cutoff=25) ng/mL Ur Amphetamines Screen (Wvkgsg=8036) ng/mL U Benzodiazepines Scrn (Dlsjhx=671) ng/mL Urine Cocaine Screen (Cutoff= 300) ng/mL U Marijuana (THC) Screen (Cutoff = 50) ng/mL Ethyl Alcohol < 10 (0-10) mg/dL Psychiatric Medical Clearance - Medical Clearance Checklist Medical History: No Social History Section defined Current Vitals: Last Vital Signs Temp 98.4 F 03/09/17 02:55 Pulse 71 03/09/17 02:55 Resp 16 03/09/17 02:55 BP 100/68 03/09/17 02:55 Pulse Ox 97 03/09/17 02:55 Psychiatric Lab Panel: Drug Levels and Toxicity 03/08/17 03/08/17 02:56 22:16 Urine Opiates Screen Negative Acetaminophen < 1.0 L Ur Barbiturates Screen Negative Ur Phencyclidine Scrn Negative Ur Amphetamines Screen Negative U Benzodiazepines Scrn Negative Urine Cocaine Screen Positive H U Marijuana (THC) Screen Negative Ethyl Alcohol < 10 Abnormal Labs: Abnormal lab results Potassium 3.4 mEq/L (3.5-4.5) L 03/08/17 22:16 Glucose 106 mg/dL (70-99) H 03/08/17 22:16 Ur Specific [place] > 1.030 (1.010-1.025) H 03/08/17 02:56 Urine Bilirubin Small (Negative) H 03/08/17 02:56 Ur Squamous Epith Cells Moderate per lpf (None-Few) H 03/08/17 02:56 Salicylates < 5.0 mg/dL (15-30) L 03/08/17 22:16 Acetaminophen < 1.0 mcg/mL (10-30) L 03/08/17 22:16 Urine Cocaine Screen Positive ng/mL (Cutoff= 300) H 03/08/17 02:56 Statement of Medical Clearance: I have evaluated the patient, reviewed diagnostic information, and certify that the patient's medical condition is sufficiently stable that transfer to the psychiatric unit does not pose a significant risk of deterioration.
[2017-03-08 22:29] LABS: Basophils # 0.1 K/mcL (0.0-0.2); Basophils % 0.6 %; Hematocrit 42.7 % (37.5-50.1); Hemoglobin 14.7 g/dL (12.9-16.9); Immature Granulocytes % 0.3 % (0-4); Lymphocytes # 3.6 K/mcL (0.6-4.6); Lymphocytes % 35.7 %; Mean Corpuscular HGB Conc 34.4 g/dL (31.6-35.5); Mean Corpuscular Hemoglobin 29.1 pg (28.0-33.3); Mean Corpuscular Volume 84.4 fL (83.0-100.0); Mean Platelet Volume 11.4 fL (9.4-12.4); Monocytes # 1.1 K/mcL (0.0-1.3); Neutrophils # 5.2 K/mcL (1.6-8.9); Platelet Count 221 K/mcL (140-400); Red Blood Count 5.06 M/mcL (4.19-5.50); Red Cell Distribution Width 13.2 % (11.5-14.5); Segmented Neutrophils % 52.4 %
[2017-03-08 22:30] LABS: Bilirubin,Urine Small (Negative); Blood,Urine Negative (Negative); Clarity,Urine Clear (Clear); Color,Urine Dark Yellow (Yellow); Glucose,Urine (UA) Normal (Normal); Ketones,Urine Negative (Negative); Leukocyte Esterase,Urine Negative (Negative); Nitrite,Urine Negative (Negative); Protein,Urine Trace mg/dL (Neg-Trace); Specific Gravity,Urine > 1.030 (1.010-1.025); Urobilinogen,Urine Normal (Normal)
[2017-03-08 22:31] LABS: Bacteria,Urine None Seen per hpf (None-Few); Hyaline Casts,Urine None Seen per lpf (None-Few); RBC,Urine 0-3 per hpf (0-3); Squamous Epithelial Cell,Urine Moderate per lpf (None-Few); WBC,Urine 0-3 per hpf (0-3)
[2017-03-08 22:42] LABS: Amphetamine Screen,Urine Negative ng/mL (Cutoff=1000); Barbiturate Screen,Urine Negative ng/mL (Cutoff=200); Benzodiazepines Screen,Urine Negative ng/mL (Cutoff=200); Cannabinoid Screen,Urine Negative ng/mL (Cutoff = 50); Cocaine Screen,Urine Positive ng/mL (Cutoff= 300); Opiate Screen,Urine Negative ng/mL (Cutoff=300); Phencyclidine Screen,Urine Negative ng/mL (Cutoff=25)
[2017-03-08 22:44] LABS: BUN/Creatinine Ratio 16 (6-26); Blood Urea Nitrogen 18 mg/dL (8-26); Calcium 9.4 mg/dL (8.6-10.8); Carbon Dioxide 25 mEq/L (19-29); Chloride 106 mEq/L (98-109); Glucose 106 mg/dL (70-99); Osmolality,Calculated 292 (280-300); Potassium 3.4 mEq/L (3.5-4.5); Sodium 140 mEq/L (136-145); eGFR For African Americans > 60 (> 60); eGFR For Non-African Americans > 60 (> 60)
[2017-03-08 22:45] LABS: Acetaminophen < 1.0 mcg/mL (10-30); Ethanol < 10 mg/dL (0-10); Salicylate < 5.0 mg/dL (15-30)
[2017-03-09] MEDS ORDERED: *HR* LORazepam 1 MG TABLET PO PRN (04:17)
[2017-03-09] MEDS ORDERED: traZODone 50 MG TABLET PO PRN (04:17)
[2017-03-09] MEDS ORDERED: MOM Conc 10 ML UD.LIQ PO PRN (04:17)
[2017-03-09] MEDS ORDERED: *HR* LORazepam 2 MG/ML VIAL IM PRN (04:17)
[2017-03-09] MEDS ORDERED: Mag Hydrox/Al Hydrox/Simeth 30 ML UDC PO PRN (04:17)
[2017-03-09] MEDS ORDERED: hydrOXYzine pamoate 25 MG CAPSULE PO PRN (04:17)
[2017-03-09] MEDS ORDERED: Haloperidol Lactate 5 MG/ML VIAL IM PRN (04:17)
[2017-03-09] MEDS ORDERED: Ibuprofen 800 MG TABLET PO PRN (04:20)
[2017-03-09] MEDS: BuPROPion XL (24 HR) 150 MG TABLET PO SCH (09:17)
[2017-03-09] MEDS: Gabapentin 300 MG CAPSULE PO SCH ×3 (09:17→21:46)
[2017-03-09] MEDS: Nicotine 21 MG PATCH.TD24 TD SCH (09:19)
--- NOTE | 2017-03-09 14:44 | Psychiatry History & Physical ---
Date of Encounter: 03/09/17 Time of Encounter: 14:00 History of Present Illness Patient Stated Chief Complaint: i wanted to kill myself Medicare Admission Attestation: For traditional Medicare patients the provided hospital inpatient services are reasonable and necessary and in the case of services not specified as inpatient -only under 42 CFR 419.22 (n), that they are appropriately provided as inpatient services in accordance 42 CFR 412.3. For Critical Access Hospital the patient may reasonably be expected to be discharged or transferred to a hospital within 96 hours after admission to the Critical Access Hospital. History of Present Illness: Mr. Joel is a 41 year old male readmitted from ED , where he presented with suicidal ideation and using cocaine . He has h/o polysubstance dependence , personality disorder , depression , h/o non compliance. he at present states i have lot of stress, legal issues , i got bad news from [employer] that he is going to be going back to jail , even when i am doing random drug test, counselling but i have to do mandatory 2 years for felony charge. he was given paxil and celexa but had side effects and therefore meds were changed to wellbutrin and remeron , i was taking them but the stress of going to jail , i rather kill my self . he came to hospital after finding out has court date on and had to go to jail for 2 years, got scared and anxious and said he is suicidal. he states he likes his medicine. his tox positive for cocaine. denies psychosis and arelis Past Med Surg Social Fam HX - Past Medical History Medical history: COPD, hypertension - Past Surgical History Surgical History: other - Social History Smoking Status: Current every day smoker Smokeless Tobacco Status: No Alcohol use: none Drug use: cocaine, opiates, IV Drug Use, other Occupational status: unemployed Current living situation: Home, With Family Activity Level: Independent ambulation Recent Out of Country Travel Within the Last 8 Weeks: No Exposure or Possible Exposure to Illness During Travel: No - Family History Mother Living Status: Still Living Hx Family Musculoskeletal Disorders: Yes (arthritis) Hx Family Neuromuscular Disorders: No Hx Family Neurologic Disorders: No Hx Family HEENT Disorders: No Hx Family Autoimmune Disorders: No Hx Family Reproductive Disorders: No (unknown) Hx Family Psychosocial Disorders: Yes (anxiety depression) Maternal Grandfather History Unknown: Yes Hx Family Cancer: Yes Paternal Grandfather Hx Family Cancer: Yes Medications & Allergies Gabapentin [Neurontin] 600 mg PO TID #90 tablet 06/16/16 [Rx] Buprenorphine HCl/Naloxone HCl [Suboxone 8 mg-2 mg Sl Film] 1 each SL BID [History] Ibuprofen 800 mg PO TID PRN 02/22/17 [History] Nicotine Patch [Nicoderm] 7 mg TD DAILY 02/22/17 [History] BuPROPion XL (24 HR) [Wellbutrin Xl] 300 mg PO DAILY #60 tab 02/26/17 [Rx] Mirtazapine [Remeron] 15 mg PO HS #30 tab 02/26/17 [Rx] Paroxetine HCl [Paroxetine Cr] 25 mg PO DAILY 03/09/17 [History] Trazodone HCl 100 mg PO HS 03/09/17 [History] Allergies No Known Allergies Allergy (Verified 03/23/16 05:20) Review of Systems Review of Systems: patient had physical in ED. Constitutional: Denies: fever, chills, weakness, weight change Eyes: Denies: eye pain, vision change Ears, Nose, Throat: Denies: ear pain, throat pain, dental pain, hearing loss, congestion Cardiovascular: Denies: chest pain, palpitations, dyspnea on exertion Respiratory: Denies: cough, dyspnea, wheezes Gastrointestinal: Denies: abdominal pain, nausea, vomiting, diarrhea, constipation Genitourinary male: Denies: urgency, dysuria, frequency, genital lesions Genitourinary female: Denies: urgency, dysuria, frequency, abnormal menses, dyspareunia Musculoskeletal: Denies: joint swelling, joint pain Integumentary: Denies: rash, lesions, pruritus Neurological: Denies: headache, weakness, numbness, memory loss Psychiatric: Reports: depression, anxiety, suicidal ideation, irritability Endocrine: Denies: fatigue, heat or cold intolerance Hematologic/Lymphatic: Denies: easy bruising, lymphadenopathy Allergic/Immunologic: Denies: urticaria, itchy eyes Mental Status Exam Patient orientation: Yes Person, Yes Time, Yes Place Level of alertness: Alert Patient appearance: Appropriate Behavior: anxious Psychomotor activity: Normal Eye contact: Maintains Eye Contact Mood description: Anxious Affect description: constricted Speech pattern: Normal rate, Normal rhythm, Normal tone Speech volume: Normal Thought process: Intact Thought content: Yes Intact, Yes Suicidal ideation Attention span: Capable of Focused Attention Memory description: Grossly Intact Patient reliability: Reliable Historian Intelligence estimate: Average Judgment: Fair Insight: Partial Exam - HEENT Head exam IM: Present: atraumatic, normal inspection, normocephalic Eye exam IM: Present: normal appearance ENT exam IM: Present: normal exam - Neurological Neurological exam IM: Present: alert, CN II-XII intact, normal gait, oriented X3 - Skin Skin exam IM: Present: dry, warm Results - Vital Signs Vital signs: Temp Pulse Resp BP Pulse Ox 98.1 F 72 16 113/77 97 03/09/17 09:00 03/09/17 09:00 03/09/17 09:00 03/09/17 09:00 03/09/17 02:55 - Labs Labs: Laboratory Last Values WBC 10.0 K/mcL (4.3-11.1) 03/08/17 22:16 RBC 5.06 M/mcL (4.19-5.50) 03/08/17 22:16 Hgb 14.7 g/dL (12.9-16.9) 03/08/17 22:16 Hct 42.7 % (37.5-50.1) 03/08/17 22:16 MCV 84.4 fL (83.0-100.0) 03/08/17 22:16 MCH 29.1 pg (28.0-33.3) 03/08/17 22:16 MCHC 34.4 g/dL (31.6-35.5) 03/08/17 22:16 RDW 13.2 % (11.5-14.5) 03/08/17 22:16 Plt Count 221 K/mcL (140-400) 03/08/17 22:16 MPV 11.4 fL (9.4-12.4) 03/08/17 22:16 Immature Gran % 0.3 % (0-4) 03/08/17 22:16 Seg Neutrophils % 52.4 % 03/08/17 22:16 Lymphocytes % 35.7 % 03/08/17 22:16 Monocytes % 11.0 % 03/08/17 22:16 Eosinophils % 0.0 % 03/08/17 22:16 Basophils % 0.6 % 03/08/17 22:16 Neutrophils # 5.2 K/mcL (1.6-8.9) 03/08/17 22:16 Lymphocytes # 3.6 K/mcL (0.6-4.6) 03/08/17 22:16 Monocytes # 1.1 K/mcL (0.0-1.3) 03/08/17 22:16 Eosinophils # 0.0 K/mcL (0.0-0.6) 03/08/17 22:16 Basophils # 0.1 K/mcL (0.0-0.2) 03/08/17 22:16 Sodium 140 mEq/L (136-145) 03/08/17 22:16 Potassium 3.4 mEq/L (3.5-4.5) L 03/08/17 22:16 Chloride 106 mEq/L (98-109) 03/08/17 22:16 Carbon Dioxide 25 mEq/L (19-29) 03/08/17 22:16 BUN 18 mg/dL (8-26) 03/08/17 22:16 Creatinine 1.15 mg/dL (0.72-1.25) 03/08/17 22:16 Est GFR ( Amer) > 60 (> 60) 03/08/17 22:16 Est GFR (Non-Af Amer) > 60 (> 60) 03/08/17 22:16 BUN/Creatinine Ratio 16 (6-26) 03/08/17 22:16 Glucose 106 mg/dL (70-99) H 03/08/17 22:16 Calculated Osmolality 292 (280-300) 03/08/17 22:16 Calcium 9.4 mg/dL (8.6-10.8) 03/08/17 22:16 Urine Color Dark Yellow (Yellow) 03/08/17 02:56 Urine Clarity Clear (Clear) 03/08/17 02:56 Urine pH 6.0 pH Units (5.0-8.0) 03/08/17 02:[address] [employer] [place] > 1.030 (1.010-1.025) H 03/08/17 02:56 Urine Protein Trace mg/dL (Neg-Trace) 03/08/17 02:56 Urine Glucose (UA) Normal mg/dL (Normal) 03/08/17 02:56 Urine Ketones Negative mg/dL (Negative) 03/08/17 02:56 Urine Blood Negative (Negative) 03/08/17 02:56 Urine Nitrite Negative (Negative) 03/08/17 02:56 Urine Bilirubin Small (Negative) H 03/08/17 02:56 Urine Urobilinogen Normal mg/dL (Normal) 03/08/17 02:56 Ur Leukocyte Esterase Negative (Negative) 03/08/17 02:56 Urine Microscopic RBC 0-3 per hpf (0-3) 03/08/17 02:56 Urine Microscopic WBC 0-3 per hpf (0-3) 03/08/17 02:56 Ur Squamous Epith Cells Moderate per lpf (None-Few) H 03/08/17 02:56 Urine Bacteria None Seen per hpf (None-Few) 03/08/17 02:56 Hyaline Casts None Seen per lpf (None-Few) 03/08/17 02:56 Salicylates < 5.0 mg/dL (15-30) L 03/08/17 22:16 Urine Opiates Screen Negative ng/mL (Vmyzyw=109) 03/08/17 02:56 Acetaminophen < 1.0 mcg/mL (10-30) L 03/08/17 22:16 Ur Barbiturates Screen Negative ng/mL (Cfvctj=483) 03/08/17 02:56 Ur Phencyclidine Scrn Negative ng/mL (Cutoff=25) 03/08/17 02:56 Ur Amphetamines Screen Negative ng/mL (Hdvbbi=5556) 03/08/17 02:56 U Benzodiazepines Scrn Negative ng/mL (Hnkanh=852) 03/08/17 02:56 Urine Cocaine Screen Positive ng/mL (Cutoff= 300) H 03/08/17 02:56 U Marijuana (THC) Screen Negative ng/mL (Cutoff = 50) 03/08/17 02:56 Ethyl Alcohol < 10 mg/dL (0-10) 03/08/17 22:16
[2017-03-09] MEDS: Mirtazapine 15 MG TABLET PO SCH (21:46)
[2017-03-10] MEDS: Nicotine 21 MG PATCH.TD24 TD SCH (08:46)
[2017-03-10] MEDS: BuPROPion XL (24 HR) 150 MG TABLET PO SCH (08:46)
[2017-03-10] MEDS: Gabapentin 300 MG CAPSULE PO SCH ×3 (08:47→21:50)
--- NOTE | 2017-03-10 12:39 | Psychiatry Progress Note ---
Date of Encounter: 03/10/17 Time of Encounter: 12:30 Subjective Interval history: Patient seen today ,case d/w treatment team. with his consent called suboxone clinic to find out as he said dr called suboxone for me. Dr Schmitz said he had seen him first time on 03/01/17 and gave him 7 days prescription , and he was supposed to follow up on 03/08/17 and he never showed up. so i gave this info., and that why he said his prescription is ready. he has not taken any suboxone for last 4 days, c/o withdrawl, his vitals are stable , he is not restless, he was observed sitting and eating his lunch without being in any distress, states i know i am going crazy. i am anxious and depressed. i do not want to live any more, i do not want to go to the shit i am going thru. will start baclofen for some muscle aches , anxiety he is interested in Naltrexone , he has taken before and it has helped and i want to start again. Review of Systems Psychiatric: Reports: depression, anxiety, suicidal ideation, irritability Objective: Exam Patient orientation: Yes Person, Yes Time, Yes Place Level of alertness: Alert Patient appearance: Appropriate Behavior: cooperative, anxious Psychomotor activity: Normal Eye contact: Maintains Eye Contact Mood description: Depressed, Anxious Affect description: congruent with mood Speech pattern: Normal rate Speech volume: Normal Thought process: Racing Thought content: Yes Preoccupation Judgment: Fair Insight: Partial Results - Vital Signs Vital Signs: Temp Pulse Resp BP Pulse Ox 97.5 F L 61 16 122/87 97 03/10/17 08:51 03/10/17 08:51 03/10/17 08:51 03/10/17 08:51 03/09/17 02:55 Assessment and Plan (1) Major depressive disorder, recurrent Current visit: No Status: Acute Plan: Continue hospitalization, Close observation, Suicide Precautions per unit protocol, Encourage participation in unit milieu, Group Therapy, Monitor sleep, Monitor appetite, Family/Supportive other meeting Risks, benefits, side effects, alternatives discussed w/pt: Yes Patient agreeable to treatment: Yes Qualifiers: Active/Remission status: currently active Major depression episode severity : severe Psychotic features: without psychotic features Qualified Code(s): F33.2 - Major depressive disorder, recurrent severe without psychotic features (2) Suicidal ideations Current visit: No Status: Acute Plan: Continue hospitalization, Close observation, Suicide Precautions per unit protocol, Encourage participation in unit milieu, Group Therapy, Monitor sleep, Monitor appetite, Family/Supportive other meeting Risks, benefits, side effects, alternatives discussed w/pt: Yes Patient agreeable to treatment: Yes (3) Polysubstance abuse Current visit: No Status: Acute Plan: Continue hospitalization, Close observation, Suicide Precautions per unit protocol, Group Therapy, Monitor sleep, Family/Supportive other meeting Risks , benefits, side effects, alternatives discussed w/pt: Yes Patient agreeable to treatment: Yes (4) Anxiety Current visit: No Status: Acute Plan: Continue hospitalization, Suicide Precautions per unit protocol, Encourage participation in unit milieu, Group Therapy, Monitor sleep, Monitor appetite, Family/Supportive other meeting Risks, benefits, side effects, alternatives discussed w/pt: Yes Patient agreeable to treatment: Yes Consult Discharge Plan - Plan Referrals: [facility] [Outside] (You will see Zahra Donahue CNP, for outpatient psychiatric assessment and medication management services on 2016 at 8:00 AM.)
[2017-03-10] MEDS: Baclofen 10 MG TABLET PO SCH ×2 (14:46→21:51)
[2017-03-10 15:07] LABS: Albumin 3.5 g/dL (3.5-5.0); Albumin/Globulin Ratio 1.2 (1.1-2.2); Bilirubin,Direct 0.1 mg/dL (0.0-0.5); Bilirubin,Indirect 0.2 mg/dL (0.0-1.2); Bilirubin,Total 0.3 mg/dL (0.2-1.2); Total Protein 6.5 g/dL (6.0-8.3)
[2017-03-10] MEDS: Mirtazapine 15 MG TABLET PO SCH (21:52)
[2017-03-11] MEDS: BuPROPion XL (24 HR) 150 MG TABLET PO SCH (09:18)
[2017-03-11] MEDS: Baclofen 10 MG TABLET PO SCH (09:18)
[2017-03-11] MEDS: Gabapentin 300 MG CAPSULE PO SCH (09:18)
[2017-03-11] MEDS: Nicotine 21 MG PATCH.TD24 TD SCH (09:19)
[2017-03-11 10:51] VITALS: BP 137/90
--- NOTE | 2017-03-11 10:52 | Discharge Summary ---
Date of Encounter: 03/11/17 Time of Encounter: 10:40 Diagnosis - Discharge Diagnosis (1) Major depressive disorder, recurrent Status: Acute Qualifiers: Active/Remission status: currently active Major depression episode severity : severe Psychotic features: without psychotic features Qualified Code(s): F33.2 - Major depressive disorder, recurrent severe without psychotic features (2) Suicidal ideations Status: Resolved (3) Polysubstance abuse Status: Acute (4) Anxiety Status: Acute Medications - Discharge Medications Prescriptions: Baclofen [Lioresal] 10 mg PO TID #20 tab Gabapentin [Neurontin] 600 mg PO TID #20 tablet Ibuprofen 800 mg PO TID PRN 02/22/17 [History] Nicotine Patch [Nicoderm] 7 mg TD DAILY 02/22/17 [History] BuPROPion XL (24 HR) [Wellbutrin Xl] 300 mg PO DAILY #60 tab 02/26/17 [Rx] Mirtazapine [Remeron] 15 mg PO HS #30 tab 02/26/17 [Rx] Trazodone HCl 100 mg PO HS 03/09/17 [History] Baclofen [Lioresal] 10 mg PO TID #20 tab 03/11/17 [Rx] Gabapentin [Neurontin] 600 mg PO TID #20 tablet 03/11/17 [Rx] 3 Allergy/AdvReac Type Severity Reaction Status Date / Time No Known Allergies Allergy Verified 03/23/16 05:20 Results Procedures and tests throughout hospitalization: Completed Lab Orders Category Date Time Status liver [Hepatic Panel] Stat Lab 03/10/17 13:41 Completed Provider Date of admission: 03/09/17 03:49 Primary care physician: PCP NONE Assessment and Plan - Patient/Caregiver Discharge Instructions Diet: regular diet - Follow up Plan Follow up with: [facility] [Other] - 03/11/17 3:00 pm (You will see Missy, or one of her fellow counselors, today at 3:00pm, for a home visit appointment.) [facility] [Outside] (You will see Zahra Donahue CNP, for outpatient psychiatric assessment and medication management services on 2016 at 8:00 AM. Due to several missed appointments, your case is being transferred to a new provider, Vandana Briseno. Vandana will contact you directly to discuss scheduling you next appointment.) Overall status at discharge: patient is back to baseline Disposition: Home, Self-Care Hospital Course Hospital course: Mr. Joel is a 41 year old male who was admitted for suicidal ideation and has h/o depression , anxiety, poly substance dependence. he came in after his regulatory compliance director gave him the bad news that he has to serve 2 years of penitentiary time , he stated i do not want to live. yesterday he was agreeing to take naltrexone as it helped him before. after session in evening he talked to me stated my wants me to go to detox , i explained to him he is off suboxone for 5 days and his vital are wnl , he is in no distress , no stomach cramps and no diarrhea, he said i have body aches. today he states he feels better and does not want hurt himself and his and i decided to go to [facility]. and he at present declined inpatient rehab. he wants to go home and then with his will go to [facility]. He at present not suicidal , denies any thoughts of hurting others, medications help me. he denies side effects. he has wellbutrin and remeron and trazodone will be given 7 days of gabapentin , and baclofen . agreed with plan , informed consent obtained, patient not psychotic, manic or danger to self/others at present. he was educated about relapse. after the session and educating him about his medicine he stated i want my vivtrol pills, i informed him that he is going to other programme for suboxone and cannot take it with naltrexone, i declined to give him naltrexone. i talked to Christine , as per her Mr Turner told her that i am trying to dope him with vivitrol pills and he wants suboxone. unsure he wants suboxone or vivitrol. he has abused cocaine while on suboxone he has poor insight in his substance use. Time spent discussing smoking cessation with patient: 3 to 10 minutes Does patient wish to continue nicotine replacement upon disc: No - Time Spent with Patient Total time spent providing and/or coordinating discharge services: Greater than 30 minutes Quality - Multiple Antipsychotics Patient discharged on 2 or more antipsychotic medications: No Procedures - Procedures Procedures: Medication Management, Crisis Stabilization, Supportive Therapy, Group Therapy, Psychoeducational Therapy Mental Status Exam - Mental Status Exam Patient orientation: Yes Person, Yes Time, Yes Place Level of alertness: Alert Patient appearance: Appropriate Behavior: calm, cooperative Psychomotor activity: Normal Eye contact: Maintains Eye Contact Mood description: Euthymic/stable Affect description: congruent with mood Speech pattern: Normal rate, Normal rhythm, Normal tone Speech Volume: Normal Thought process: Intact Thought Content: Yes Intact Judgment: Good Insight: Partial
== END 2017-03-11 11:40 | disposition home or self-care (01) | DRG 751 ==
LOC: EMEROO 21:57 → 1ANU 03-09 03:49
PROVIDERS: ADMIT Psychiatry & Neurology Psychiatry; ATTEND Psychiatry & Neurology Psychiatry